=== PATIENT | male | born 1965 ===

== ENCOUNTER 2025-09-08 06:08 | Day surgery (SDC) | payer BC ==
[~2025-09-08] VITALS: Ht 180.3 cm; Wt 85.7 kg
[~2025-09-08 06:08] MED LIST: AMOCLA875 PO; HYDACE7.5; PENVK500
[2025-09-08] MEDS ORDERED: Tranexamic Acid 100 ML IV ONE (06:23)
[2025-09-08] MEDS ORDERED: CeFAZolin Sodium 2,000 MG VIAL ONE (06:24)
[2025-09-08] MEDS ORDERED: LISI20 PO (06:33)
[2025-09-08] MEDS ORDERED: Lidocaine 1%-Epineph 1:100000 20 ML MDV ONE (06:44)
--- NOTE | 2025-09-08 07:01 | NUR ---
[facility] [facility] MAYA AND KERRI RANKIN. PATIENT EDUCATION PROVIDED. PT DEMONSTRATED INCENTIVE SPIROMETER AFTER EDUCATION. CALL LIGHT IN REACH, NO FURTHER NEEDS AT THIS TIME.
[2025-09-08] MEDS ORDERED: FentaNYL Citrate 50 MCG/ML 2 ML Injection ONE (07:08)
[2025-09-08] MEDS ORDERED: Midazolam HCl 1MG / ML 2ML Vial ONE ×2 (07:08→07:12)
--- NOTE | 2025-09-08 09:22 | NUR ---
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
[2025-09-08] MEDS ORDERED: Ondansetron HCl 2 MG / ML 2ML Vial ONE (09:34)
[2025-09-08] MEDS ORDERED: Phenylephrine HCl 100 MCG/ML-NS 10MLSYR (1MG/10ML) ONE (09:34)
[2025-09-08] MEDS ORDERED: Dexamethasone Sod Phos 10 MG/ML 1ML VIAL ONE (09:34)
[2025-09-08] MEDS ORDERED: Ketorolac Tromethamine 30mg Vial ONE (09:34)
[2025-09-08] MEDS ORDERED: Rocuronium Bromide 10 MG/ML 5ML Injection IV ONE (09:34)
[2025-09-08] MEDS ORDERED: Sugammadex Sodium 200 MG/2ML SDV (100 MG/ML) ONE (09:35)
[2025-09-08 10:35] VITALS: BP 105/76
--- NOTE | 2025-09-08 11:27 | NUR ---
09/08/25 Carmela Saleem PT DENIED ANY PAIN, NO NAUSEA. PT ABLE TO TOLERATE FLUIDS WELL. PT PLEASANT AND COOPERATIVE WITH CARE PROVIDED. PT EDUCATION PROVIDED, ALL QUESTIONS ANSWERED, AND CONCERNS ADDRESSED. PT ASSISTED TO PRIVATE VEHICLE VIA WC. PT APPEARED TO HAVE A STEADY GAIT. PT ENCOURAGED TO USE SPIROMETER THROUGHOUT THE DAY TO HELP CLEAR LUNGS AND PREVENT PNEUMONIA. PT ENCOURAGED TO REST WELL THIS EVENING AND TO DRINK FLUIDS---PERFERABLY WATER.
== END 2025-09-08 11:11 | disposition home or self-care (01) ==
LOC: ORSCSDS 06:08
PROVIDERS: Orthopaedic Surgery Sports Medicine
PROC: 0RNK4ZZ Release Left Shoulder Joint, Percutaneous Endoscopic Approach (ICD-10-PCS; principal; 2025-09-08 07:30)
PROC: 0LS44ZZ Reposition Left Upper Arm Tendon, Percutaneous Endoscopic Approach (ICD-10-PCS; principal; 2025-09-08 07:30)
DX: M75.102 Unspecified rotator cuff tear or rupture of left shoulder, not specified as traumatic (principal); I10 Essential (primary) hypertension; Z79.899 Other long term (current) drug therapy
CPT/HCPCS: C1713; J0166; J0690; J1100; J1885; J2250; J2371; J2405; J2704; J3010; J7120